=== PATIENT | male | born 1945 | race Caucasian/White ===

== ENCOUNTER 2018-05-11 09:55 | Outpatient (CLI) | payer OTHER | END 2018-05-11 09:59 | disposition home or self-care (01) | LOC: SONOGRAMA 09:55 | DX: E03.2 Hypothyroidism due to medicaments and other exogenous substances (principal) ==

== ENCOUNTER → 2019-03-05 | Outpatient (CLI) | payer OTHER | END | disposition home or self-care (01) | LOC: MAMO-SONO 10:15 → SONOGRAMA 10:30 | DX: R31.1 Benign essential microscopic hematuria (principal) ==